=== PATIENT | male | born 1980 | race Caucasian/White ===

== ENCOUNTER 2018-05-30 10:50 | Emergency (ER) | payer OTHER ==
[~2018-05-30] VITALS: Ht 188 cm; Wt 86.0 kg
[2018-05-30 10:56] VITALS: BP 127/85
[2018-05-30] MEDS ORDERED: LEVVL SQ (11:00)
[2018-05-30] MEDS ORDERED: INSLIS SUBCUT (11:00)
== END 2018-05-30 13:45 | disposition left against medical advice (07) ==
LOC: ER 10:50
DX: Z53.21 Procedure and treatment not carried out due to patient leaving prior to being seen by health care provider (principal)